=== PATIENT | male | born 1985 | race Caucasian/White ===

== ENCOUNTER 2019-09-25 23:32 | Emergency (ER) | payer BC, OTHER ==
--- NOTE | 2019-09-26 00:23 | ED ---
Head Injury - HPI Summary HPI Summary: This patient is a 34 year old M presenting to [facility] accompanied by mother with a chief complaint of fall while alcohol intoxication since 09/25/19 2300, per triage. Denies LOC. Symptoms aggravated by nothing. Symptoms alleviated by nothing. Patient reports he tripped on something in garage and hit head. - History Of Current Complaint Chief Complaint: EDHeadInjury Stated Complaint: FALL HIT HEAD PER PT Time Seen by Provider: 09/26/19 00:08 Hx Obtained From: Patient Mechanism Of Injury: Fall From A Standing Position Onset/Duration: Started Hours Ago, Still Present Pain Intensity: 4 Pain Scale Used: 0-10 Numeric Aggravating Factor(s): Other: - nothing Alleviating Factor(s): Other: - nothing - Allergies/Home Medications Allergies/Adverse Reactions: Allergies Allergy/AdvReac Type Severity Reaction Status Date / Time No Known Allergies Allergy Verified 04/24/15 13:25 PMH/Surg Hx/FS Hx/Imm Hx Endocrine/Hematology History: Denies: Hx Anticoagulant Therapy, Hx Diabetes Cardiovascular History: Denies: Hx Congestive Heart Failure, Hx Hypertension - Surgical History Surgery Procedure, Year, and Place: none Infectious Disease History: No Infectious Disease History: Denies: Hx Clostridium Difficile, Hx Hepatitis, Hx Human Immunodeficiency Virus (HIV), Hx of Known/Suspected MRSA, Hx Shingles, Hx Tuberculosis, Traveled Outside the in Last 30 Days - Family History Known Family History: Positive: Hypertension, Diabetes, Other - prostate cancer - Social History Alcohol Use: Occasionally Hx Substance Use: No Substance Use Type: Reports: None Hx Tobacco Use: No Smoking Status (MU): Never Smoked Tobacco Review of Systems Positive: Other - laceration Positive: Other - alcohol intoxication All Other Systems Reviewed And Are Negative: Yes Physical Exam - Summary Physical Exam Summary: Appearance: Well-appearing, Well-nourished, lying in bed comfortably Skin: 6 cm laceration near the left upper forehead, Smaller 3cm laceration 4 cm below and parallel to that. Eyes: sclera anicteric, no conjunctival pallor ENT: mucous membranes moist, pharynx appears normal Neck: Supple, nontender Respiratory: Clear to auscultation, no signs of respiratory distress Cardiovascular: Normal S1, S2. No murmurs. Normal distal pulses in tibial and radial bilaterally. Abdomen: Soft, nontender, normal active bowel sounds present Musculoskeletal: Normal, Strength/ROM Intact Neurological: A&Ox3, awake and alert, mentation is normal, speech is fluent and appropriate Psychiatric: affect is normal, does not appear anxious or depressed Triage Information Reviewed: Yes Vital Signs On Initial Exam: Initial Vitals Temp Pulse Resp BP Pulse Ox 97.8 F 77 16 130/79 96 09/25/19 23:41 09/25/19 23:41 09/25/19 23:41 09/25/19 23:41 09/25/19 23:41 Vital Signs Reviewed: Yes Procedures - Sedation Patient Received Moderate/Deep Sedation with Procedure: No - Laceration/Wound Repair 1 Location: Other - forehead Anesthesia: 1.0%, Lido, Epi Betadine Prep?: Yes Laceration/Wound Explored: clean Closure: Single Layer Suture Type: Nylon Number of Sutures: 11 2 Location: Other - forehead Anesthesia: 1.0%, Lido, Epi Betadine Prep?: Yes Laceration/Wound Explored: clean Closure: Single Layer Suture Type: Nylon Number of Sutures: 3 Diagnostics - Vital Signs Vital Signs Temp Pulse Resp BP Pulse Ox 09/25/19 23:41 97.8 F 77 16 130/79 96 - Laboratory Lab Statement: Any lab studies that have been ordered have been reviewed, and results considered in the medical decision making process. - CT Cervical Spine CT CT Interpretation Completed By: Radiologist Summary of CT Findings: Per radiologist,. 1. No cervical spine traumatic abnormalities. 2. Mild multilevel cervical spondylopathy. ED physician has reviewed this imaging report. Brain CT CT Interpretation Completed By: Radiologist Summary of CT Findings: Per radiologist,. No traumatic intracranial abnormalities. ED physician has reviewed this imaging report. Head Injury Course/Dx Course Of Treatment: This patient is a 34 year old M presenting to [facility] accompanied by mother with a chief complaint of fall while alcohol intoxication since 09/25/19 2300, per triage. Denies LOC. Patient reports he tripped on something in garage and hit head. Physical Exam Findings reveals no abnormalities except for 6 cm laceration near the left upper forehead, Smaller 3cm laceration 4 cm below and parallel to that. Cervical Spine CT reveals. 1. No cervical spine traumatic abnormalities. 2. Mild multilevel cervical spondylopathy. Brain CT reveals No traumatic intracranial abnormalities. Tests reveal no abnormalities except for Serum Alcohol 195 H. Patient will be discharged with dx of facial laceration, head injury, alcohol intoxication. The patient is agreeable with this plan. - Diagnoses Provider Diagnoses: Facial laceration, Head injury, Alcohol intoxication Discharge ED - Sign-Out/Discharge Documenting (check all that apply): Patient Departure - discharge - Discharge Plan Condition: Good Disposition: HOME Patient Education Materials: Care For Your Stitches (ED), Laceration (ED), Alcohol Intoxication (ED) Referrals: No Primary Care Phys,NOPCP [Primary Care Provider] - Additional Instructions: Sutures need to be removed in 5-7 days. - Billing Disposition and Condition Condition: GOOD Disposition: Home - Attestation Statements Document Initiated by Scribe: Yes Documenting Scribe: Sol Lopez Provider For Whom Lalo is Documenting (Include Credential): Dr. Carlos Arzate MD Scribe Attestation: Sol Perez scribed for Dr. Carlos Arzate MD on 09/28/19 at 1748. Scribe Documentation Reviewed: Yes Provider Attestation: The documentation as recorded by the Sol dalton accurately reflects the service I personally performed and the decisions made by me, Dr. Carlos Arzate MD Status of Scribe Document: Viewed
[2019-09-26] MEDS ORDERED: Lidocaine 2% w/ EPI 1:200,000* 20 ML SDV VIAL ONE (01:06)
[2019-09-26 01:58] VITALS: BP 124/88
== END 2019-09-26 01:57 | disposition home or self-care (01) ==
LOC: ED 23:32
DX: S01.81XA Laceration without foreign body of other part of head, initial encounter (principal); F10.129 Alcohol abuse with intoxication, unspecified; W19.XXXA Unspecified fall, initial encounter; Y92.9 Unspecified place or not applicable
CPT/HCPCS: 12011; 36415; 70450; 72125; 80320; 99282; G0480

== ENCOUNTER 2019-12-08 07:10 | Emergency (ER) | payer OTHER ==
[2019-12-08 07:28] VITALS: BP 151/70
--- NOTE | 2019-12-08 07:45 | UC ---
Shoulder Pain HPI - HPI Summary HPI Summary: ABOUT 2 WEEKS OF RIGHT SHOULDER PAIN. STATES IT SEEMS TO MOVE AROUND. FEELS BETTER WITH ACTIVITY. DENIES ANY DISCRETE INJURY HOWEVER HE WORKS AN [employer] AND DOES DO HEAVY LIFTING FROM TIME TO TIME. NO NUMBNESS/TINGLING. NO CHEST PAIN. IBUPROFEN IS HELPFUL. - History of Current Complaint Chief Complaint: UCUpperExtremity Stated Complaint: SHOULDER PAIN Time Seen by Provider: 12/08/19 07:36 Hx Obtained From: Patient Onset/Duration: Gradual Onset, Lasting Weeks, Still Present Timing: Constant Severity Initially: Moderate Severity Currently: Moderate Location Of Pain: Is Discrete @ - RIGHT SHOULDER Pain Intensity: 7 Pain Scale Used: 0-10 Numeric Character: Sharp Aggravating Factor(s): Other - WORSE WITH REST Associated Signs And Symptoms: Positive: Negative Related History: Dominant Hand Right - Allergies/Home Medications Allergies/Adverse Reactions: Allergies Allergy/AdvReac Type Severity Reaction Status Date / Time No Known Allergies Allergy Verified 12/08/19 07:26 Home Medications: Home Medications Ibuprofen 600 mg PO Q4HR PRN 12/08/19 [History Confirmed 12/08/19] PMH/Surg Hx/FS Hx/Imm Hx Previously Healthy: Yes Other History Of: Negative For: Anticoagulant Therapy - Surgical History Surgical History: None Surgery Procedure, Year, and Place: none - Family History Known Family History: Positive: Hypertension, Diabetes, Other - prostate cancer - Social History Alcohol Use: Occasionally Substance Use Type: None Smoking Status (MU): Never Smoked Tobacco Review of Systems All Other Systems Reviewed And Are Negative: Yes Constitutional: Positive: Negative Skin: Positive: Negative Respiratory: Positive: Negative Cardiovascular: Positive: Negative Gastrointestinal: Positive: Negative Musculoskeletal: Positive: Arthralgia, Myalgia. Negative: Decreased ROM Physical Exam Triage Information Reviewed: Yes Appearance: Well-Appearing, No Pain Distress, Well-Nourished Vital Signs: Initial Vital Signs Temp 97.9 F 12/08/19 07:19 Pulse 63 12/08/19 07:19 Resp 18 12/08/19 07:19 BP 151/70 12/08/19 07:19 Pulse Ox 97 12/08/19 07:19 Vital Signs Reviewed: Yes Eyes: Positive: Conjunctiva Clear ENT: Positive: Hearing grossly normal Neck: Positive: Supple Respiratory: Positive: No respiratory distress, No accessory muscle use Cardiovascular: Positive: Pulses Normal Abdomen Description: Positive: Soft Musculoskeletal: Positive: ROM Intact, No Edema Neurological: Positive: Alert, Muscle Tone Normal, Other: - NO FOCAL BONY TENDERNESS. NO MUSCLE TENDERNESS. 5/5 STRENGTH Psychological: Positive: Age Appropriate Behavior Skin: Negative: Rashes Diagnostics - Radiology RIGHT SHOULDER XRAYS Radiology Interpretation Completed By: Radiologist Summary of Radiographic Findings: MILD OSTEOARTHRITIS WITH QUESTIONABLE LOOSE BODY IN THE JOINT SPACE Shoulder Course/Dx - Course Course Of Treatment: XRAYS SHOW MILD OSTEOARTHRITIS WITH QUESTIONABLE LOOSE BODY IN THE JOINT SPACE. SLING PROVIDED FOR COMFORT. IBUPROFEN NEEDED. FOLLOW-UP WITH OR SO FOR FURTHER EVALUATION. - Differential Dx/Diagnosis Provider Diagnosis: Right shoulder pain Discharge ED - Sign-Out/Discharge Documenting (check all that apply): Patient Departure All imaging exams completed and their final reports reviewed: Yes - Discharge Plan Condition: Stable Disposition: HOME Patient Education Materials: Shoulder Pain (ED) Referrals: Primo Ayers MD [Medical Doctor] - 1 Week Additional Instructions: SHOULDER XRAYS TODAY SHOW MILD OSTEOARTHRITIS WITH QUESTIONABLE LOOSE BODY IN THE JOINT SPACE. WEAR THE SLING NEEDED FOR COMFORT. IBUPROFEN NEEDED. FOLLOW-UP WITH ORTHOPEDICS FOR FURTHER EVALUATION. - Billing Disposition and Condition Condition: STABLE Disposition: Home
== END 2019-12-08 08:35 | disposition home or self-care (01) ==
LOC: UCEAST 07:10
DX: M25.511 Pain in right shoulder (principal); M19.011 Primary osteoarthritis, right shoulder
CPT/HCPCS: 99211; G0463